=== PATIENT | female | born 1995 | race Caucasian/White ===

== ENCOUNTER → 2017-01-11 | Outpatient (CLI) | payer BC | LOC: COL.RAD 14:45 | DX: M65.872 Other synovitis and tenosynovitis, left ankle and foot (principal); M77.52 Other enthesopathy of left foot and ankle; R60.0 Localized edema ==

== ENCOUNTER 2017-11-30 00:44 | Emergency (ER) | payer SELFPAY ==
[~2017-11-30] VITALS: Ht 172.7 cm; Wt 100.0 kg
[2017-11-30] MEDS ORDERED: FOLIC ACID 11 MG/TA1 PO (02:39)
[2017-11-30] MEDS ORDERED: MULTIPLE VITAMI1 CAP PO (02:39)
[2017-11-30 04:54] VITALS: BP 118/71; PULSE 88
== END 2017-11-30 04:54 | disposition home or self-care (01) ==
LOC: COL.ER 00:44
DX: S92.321A Displaced fracture of second metatarsal bone, right foot, initial encounter for closed fracture (principal); X50.0XXA Overexertion from strenuous movement or load, initial encounter; Y92.89 Other specified places as the place of occurrence of the external cause
CPT/HCPCS: J1170; Q4045